=== PATIENT | male | born 1960 | race Caucasian/White ===

== ENCOUNTER 2022-11-01 07:37 | Day surgery (SDC) | payer BC ==
[2022-11-01 08:12] VITALS: TEMP 98.1
[2022-11-01] MEDS ORDERED: LIDOCAINE 1% (10MG/ML) FOR IV START INTRADERMA PRN (08:14)
[2022-11-01] MEDS ORDERED: LACTATED RINGERS 1,000 ML IV ONE (08:14)
[2022-11-01] MEDS ORDERED: LACTATED RINGERS 1,000 ML IV SCH (08:14)
[2022-11-01 08:23] LABS: Glucose,Whole Blood 121 mg/dL (70-110)
[2022-11-01] MEDS ORDERED: PROPOFOL 10 MG/ML 20 ML VIAL IV ONE (08:32)
--- NOTE | 2022-11-01 08:53 | P.PCN ---
Date of Procedure: 11/01/22 Procedure(s) Performed: BRIEF HISTORY: Patient is a 62-year-old pleasant male scheduled for an elective colonoscopy as a part of screening for colon cancer/positive cologuard PROCEDURE PERFORMED: Colonoscopy with snare polypectomy. PREOPERATIVE DIAGNOSIS: Screening for colon cancer/positive cologuard. IV sedation per Anesthesia. PROCEDURE: After informed consent was obtained, the patient, was brought into the endoscopy unit. IV sedation was administered by Anesthesia under continuous monitoring. Digital rectal examination was normal. Initially the Olympus CF-160 flexible video colonoscope was then inserted in the rectum, gradually advanced into the cecum without any difficulty. Careful examination was performed as the scope was gradually being withdrawn. Ileocecal valve and the appendiceal orifice were visualized and appeared normal. Prep was excellent. Mucosa of the cecum, ascending colon, transverse colon, descending colon, appeared normal. There was a 1 cm polyp noted in the sigmoid that was removed by snare polypectomy. In the rectum there was a 5 mm sessile polyp that was snare polypectomy. Scattered sigmoidal diverticula cyst seen. sigmoid colon, and rectum appeared normal. Retroflexion was performed in the rectum and no lesions were seen. The patient tolerated the procedure well. IMPRESSION: 1 cm; sigmoid polyp status post polypectomy 5 mm rectal polyp status post polypectomy Scattered sigmoid diverticulosis. RECOMMENDATIONS: Findings of this examination were discussed with the patient .as well as his family. He was advised to follow with the biopsy results. If the biopsy results and he can have a repeat colonoscopy in 3 years.
[2022-11-01 09:04] VITALS: RESP 20
[2022-11-01 09:14] VITALS: BP 133/78; PULSE 67
== END 2022-11-01 09:25 | disposition home or self-care (01) ==
LOC: ORWHC2ENDO 07:37
PROVIDERS: ATTEND Internal Medicine Gastroenterology
DX: D12.5 Benign neoplasm of sigmoid colon (principal); K62.1 Rectal polyp; K57.30 Diverticulosis of large intestine without perforation or abscess without bleeding; I25.10 Atherosclerotic heart disease of native coronary artery without angina pectoris; I10 Essential (primary) hypertension; E78.5 Hyperlipidemia, unspecified; G47.33 Obstructive sleep apnea (adult) (pediatric); E11.9 Type 2 diabetes mellitus without complications; Z95.5 Presence of coronary angioplasty implant and graft; Z79.899 Other long term (current) drug therapy; Z79.84 Long term (current) use of oral hypoglycemic drugs; Z79.01 Long term (current) use of anticoagulants; Z79.82 Long term (current) use of aspirin
CPT/HCPCS: 88305; 45385; J2704